=== PATIENT | male | born 1995 | race Caucasian/White ===

== ENCOUNTER 2017-01-02 14:19 | Emergency (ER) | payer OTHER ==
[~2017-01-02] VITALS: Ht 175.2 cm; Wt 63.5 kg
[~2017-01-02 14:19] MED LIST: CLARITIN10 MG PO; NAPROSYN500 MG PO; NKHM; PROVENTIL0.09 MG/A1 INH; ZITHROMAX Z PA250 MG PO; ZITHROMAX250 MG PO; ZOFRAN ODT4 MG SL
[2017-01-02 14:23] VITALS: BP 136/72
[2017-01-02] MEDS ORDERED: MEDROL DOSEPAK4 MG PO (14:27)
[2017-01-02] MEDS ORDERED: ROBAXIN500 M1 PO (14:27)
[2017-01-02] MEDS ORDERED: ANAPROX DS550 MG PO (15:49)
[2017-01-02] MEDS ORDERED: IBU800 MG PO (15:52)
== END 2017-01-02 16:01 | disposition home or self-care (01) ==
LOC: ED 14:19
DX: M54.5 Low back pain (principal); M25.552 Pain in left hip; G89.29 Other chronic pain; F17.200 Nicotine dependence, unspecified, uncomplicated

== ENCOUNTER 2017-06-20 10:44 | Emergency (ER) | payer OTHER ==
[~2017-06-20] VITALS: Ht 175.2 cm; Wt 65.8 kg
[~2017-06-20 10:44] MED LIST changes: +ANAPROX DS550 MG PO; +IBU800 MG PO; +MEDROL DOSEPAK4 MG PO; +ROBAXIN500 M1 PO
[2017-06-20 10:47] VITALS: BP 118/64
[2017-06-20] MEDS ORDERED: NAPROSYN500 MG PO (10:48)
[2017-06-20] MEDS ORDERED: CHLORZOXAZONE500 M2 PO (10:48)
== END 2017-06-20 12:34 | disposition home or self-care (01) ==
LOC: ED 10:44
DX: M54.5 Low back pain (principal); G89.29 Other chronic pain; X50.1XXA Overexertion from prolonged static or awkward postures, initial encounter; Y93.89 Activity, other specified; Y92.89 Other specified places as the place of occurrence of the external cause; Y99.9 Unspecified external cause status

== ENCOUNTER 2018-05-12 22:02 | Emergency (ER) | payer OTHER ==
[~2018-05-12] VITALS: Ht 172.7 cm; Wt 65.8 kg
[~2018-05-12 22:02] MED LIST changes: +CHLORZOXAZONE500 M2 PO
[2018-05-12 22:05] VITALS: BP 126/73
== END 2018-05-12 22:30 | disposition home or self-care (01) ==
LOC: ED 22:02
DX: T15.01XA Foreign body in cornea, right eye, initial encounter (principal); Z23 Encounter for immunization; Y92.89 Other specified places as the place of occurrence of the external cause

== ENCOUNTER 2018-10-11 18:15 | Emergency (ER) | payer OTHER ==
[~2018-10-11] VITALS: Ht 175.2 cm; Wt 63.5 kg
[2018-10-11 18:16] VITALS: BP 125/75
[2018-10-11] MEDS ORDERED: LIDEX 0.05% CRE15 GM T (18:23)
== END 2018-10-11 18:37 | disposition home or self-care (01) ==
LOC: ED 18:15
DX: L23.7 Allergic contact dermatitis due to plants, except food (principal)